=== PATIENT | female | born 1975 | race Caucasian/White ===

== ENCOUNTER → 2020-11-26 | Outpatient (CLI) | payer MEDICAID, OTHER ==
--- NOTE | 2020-11-26 19:44 | XRAY Report ---
PROCEDURE: Wrist 2 View BILAT INDICATIONS: BILATERAL WRIST PAIN FROM WORK TECHNIQUE: 2 views of the bilateral wrists. COMPARISON: None FINDINGS: No fracture or dislocation. No suspicious lytic or blastic osseous lesion. No significant degenerativ e changes in either wrist. Regional soft tissues are unremarkable. IMPRESSION: No acute finding or significant degenerative change. Reviewed by: Lucas Ambrocio MD on 11/26/2020 7:42 PM PDT Approved by: Lucas Ambrocio MD on 11/26/2020 7:42 PM PDT Station ID: [id number]
== END ==
LOC: DI.N 19:14
PROVIDERS: ATTEND Nurse Practitioner
DX: M25.531 Pain in right wrist (principal); M25.532 Pain in left wrist

== ENCOUNTER 2021-11-11 07:47 | Emergency (ER) | payer MEDICAID, OTHER ==
[2021-11-11 07:59] VITALS: BP 122/87
[2021-11-11] MEDS ORDERED: methocarbamoL 500 MG TABLET PO STA (08:22)
[2021-11-11] MEDS ORDERED: NAPROXEN 250 MG TABLET PO STA (08:22)
[2021-11-11] MEDS ORDERED: ACETAMINOPHEN 325 MG TABLET PO STA (08:22)
--- NOTE | 2021-11-11 09:46 | ED Physician Documentation ---
PD HPI NECK PAIN - Stated complaint Stated Complaint: TINGLING/NUMBNESS L HAND/HEAD PRESSURE - Chief complaint Chief Complaint: MHE - History obtained from History obtained from: Patient - History of Present Illness Timing - onset: How many days ago (several) Timing - duration: Days (several) Timing - details: Gradual onset, Waxing and waning (has had pain in left neck radiating to left arm intermittently. Also having stress about work with nausea and vomiting in mornings she feels due to stress.) Location: Mid, Lower, Left Quality: Pain, Spasm, Aching Associated symptoms: Numbness (intermittent in left middle/ring/little fingers, not consistent.). 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 No: Twisting Similar symptoms before: Has not had sx before Recently seen: Not recently seen Review of Systems Skin: denies: Rash, Lesions Neurologic: denies: Focal weakness, Numbness Psychiatric: reports: Anxiety, Insomnia. denies: Depressed, Suicidal PD PAST MEDICAL HISTORY - Past Medical History Past Medical History: Yes Cardiovascular: None Respiratory: None Psych: Anxiety - Past Surgical History Past Surgical History: Yes HEENT: Myringotomy (tubes) - Present Medications Home Medications: Ambulatory Orders Medication Instructions Recorded Confirmed HYDROcod/ACETAM 5/325 [[place] 5/325] 1 ea PO Q6H PRN #15 tablet 11/11/21 Naproxen 500 mg PO BID #20 tab.sr 11/11/21 tiZANidine [Zanaflex] 4 mg PO Q8H PRN #25 tablet 11/11/21 - Allergies Allergies/Adverse Reactions: Allergies Allergy/AdvReac Type Severity Reaction Status Date / Time No Known Drug Allergies Allergy Verified 11/11/21 07:59 - Social History Does the pt smoke?: No Smoking Status: Never smoker Does the pt drink ETOH?: No Does the pt have substance abuse?: No - Immunizations Immunizations are current?: Yes PD ED PE NORMAL - Vitals Vital signs reviewed: Yes - General General: Alert and oriented X 3, Well developed/nourished, Other (seems a bit anxious but interacts well. Denies depression/self harm ideation. ) - Neck Neck: Supple, no meningeal sign, No bony TTP (there is some tenderness left paracervical neck muscles without rash, focal trigger point, sores. ), No adenopathy - Cardiac Cardiac: RRR, No murmur - Respiratory Respiratory: Clear bilaterally - Abdomen Abdomen: Soft, Non tender - Derm Derm: Normal color, Warm and dry - Neuro Neuro: Alert and oriented X 3, No motor deficit, No sensory deficit (normal sensation touch and pinprick currently. ) Results - Vitals Vitals: Vital Signs - 24 hr 11/11/21 07:56 Temperature 37.2 C Heart Rate 69 Respiratory 20 Rate Blood Pressure 122/87 H O2 Saturation 100 Oxygen O2 Source Room air PD MEDICAL DECISION MAKING - ED course Complexity details: considered differential (neck muscle tenderness and pain with intermittent radicular numbness in fingers. Not consistent. Also with anxiety about work. Has had job 2 months. Will have SW talk and reference counselors in area. ), d/w patient Departure - Departure Disposition: 01 Home, Self Care Clinical Impression: Neck pain, Radiculitis, Anxiety Condition: Stable Record reviewed to determine appropriate education?: Yes Instructions: ED Cervical Radiculopathy Prescriptions: Naproxen 500 mg PO BID #20 tab.sr HYDROcod/ACETAM 5/325 [[place] 5/325] 1 ea PO Q6H PRN #15 tablet PRN Reason: Pain tiZANidine [Zanaflex] 4 mg PO Q8H PRN #25 tablet PRN Reason: Spasms Comments: No heavy lifting or repetitive use of the left shoulder for the next 5 days due to neck strain and some nerve irritation. Use naproxen anti-inflammatory twice daily with food for the next 7 to 10 days. Also tizanidine muscle relaxant 3 times daily for stiffness and spasms. To that add Tylenol every 4-6 hours if needed for pain or hydrocodone/acetaminophen if needed for worse pain, particularly at night for sleep etc. Follow-up with your primary care if not improved well over the next several days to week. It may be good to just follow-up in about a week to see how much better you are doing and decide if further treatment such as physical therapy is indicated. I transmitted prescriptions to [facility]. Follow-up also with local counseling regarding anxiety and stress and stress management techniques. Resources were from the social work. I am prescribing a short course of narcotic pain medication for you. These are potentially dangerous and addictive medications that should be used carefully. These medications may constipate you. Take an bebv-gsi-anzpbpn stool softener such as docusate twice daily with plenty of water while taking these medications. If you go 24 hours without a bowel movement, take [id number]-[id number] MiraLAX, per package instructions. Do not drink or drive while taking these medications. If you received narcotic or sedating medications while in the emergency department do not drive for 24 hours. Store this medication in a safe, secure place and out of reach of children. It is a violation of federal law to give or sell this medication to another person or to use in a manner other than prescribed. The ED will not refill narcotic prescriptions, including prescriptions lost or stolen. You can dispose of unwanted medications at the [facility] office or at several pharmacies such as [facility]. Forms: Activity restrictions Discharge Date/Time: 11/11/21 09:58
== END 2021-11-11 09:58 | disposition home or self-care (01) ==
LOC: ED 07:47
DX: M54.12 Radiculopathy, cervical region (principal); F41.9 Anxiety disorder, unspecified
CPT/HCPCS: 99282; 99283; A9270

== ENCOUNTER 2022-11-28 07:30 | Emergency (ER) | payer MEDICAID ==
--- NOTE | 2022-11-28 07:43 | ED Physician Documentation ---
PD HPI CHEST PAIN - Stated complaint Stated Complaint: CP - Chief complaint Chief Complaint: Cardiac - History obtained from History obtained from: Patient - History of Present Illness Timing - onset: Today Timing - onset during: Sleep (awoke from sleep this morning about 2 hours [employer]NR[employer] REPRESENT[employer]IVE with chest pressure/tightness. No change with sitting up. [place] anxious with it. Not affected by breathing. Some worse with torso movement. [place] lightheaded.) Timing - duration: Hours (about 2 hours now. Had decreased and then increased without stopping.) Timing - details: Abrupt onset, Still present, Waxing and waning Quality: Pressure, Tightness. No: Sharp, Tearing Location: Substernal, Left chest Radiation: Left upper extremity. No: Neck, Abdominal Improved by: No: Rest Worsened by: Movement. No: Inspiration, Palpation Associated symptoms: Feeling faint / dizzy, General Weakness. No: Shortness of air, Palpitations, Cough Similar symptoms before: No diagnosis (had similar a week or so ago for 15-20 minutes then improved.) Recently seen: Not recently seen Review of Systems Constitutional: denies: Fever, Chills Nose: denies: Rhinorrhea / runny nose, Congestion Throat: denies: Sore throat Cardiac: denies: Palpitations, Pedal edema, Calf pain Respiratory: denies: Cough GI: denies: Abdominal Pain Neurologic: reports: Generalized weakness. denies: Near syncope, Syncope PD PAST MEDICAL HISTORY - Past Medical History Cardiovascular: None Respiratory: None Psych: Anxiety - Past Surgical History Past Surgical History: Yes HEENT: Myringotomy (tubes) - Present Medications Home Medications: Ambulatory Orders Medication Instructions Recorded Confirmed HYDROcod/ACETAM 5/325 [[place] 5/325] 1 ea PO Q6H PRN #15 tablet 11/11/21 Naproxen 500 mg PO BID #20 tab.sr 11/11/21 tiZANidine [Zanaflex] 4 mg PO Q8H PRN #25 tablet 11/11/21 HYDROcod/ACETAM 5/325 [[place] 5/325] 1 ea PO Q6H PRN #14 tablet 11/28/22 Meloxicam [Mobic] 7.5 mg PO BID 10 Days #20 tablet 11/28/22 - Allergies Allergies/Adverse Reactions: Allergies Allergy/AdvReac Type Severity Reaction Status Date / Time No Known Drug Allergies Allergy Verified 11/11/21 07:59 - Social History Does the pt smoke?: No Smoking Status: Never smoker Does the pt drink ETOH?: No Does the pt have substance abuse?: No - Immunizations Immunizations are current?: Yes PD ED PE NORMAL - Vitals Vital signs reviewed: Yes - General General: Alert and oriented X 3, Well developed/nourished, Other (appears uncomfortable and anxious. ) - Neck Neck: Supple, no meningeal sign, No adenopathy - Cardiac Cardiac: RRR, No murmur - Respiratory Respiratory: No respiratory distress, Clear bilaterally, Other (no chestwall tenderness. ) - Abdomen Abdomen: Normal bowel sounds, Soft, Non distended, Other (some tenderness in epigastric and RUQ abdomen without guarding nor percussion tenderness. ) - Derm Derm: Normal color, Warm and dry - Extremities Extremities: No edema, No calf tenderness / cord Results - Vitals Vitals: Vital Signs - 24 hr 11/28/22 11/28/22 11/28/22 07:32 08:09 08:30 Temperature 36.7 C Heart Rate 84 91 96 Respiratory 16 18 20 Rate Blood Pressure 117/69 107/76 104/75 O2 Saturation 99 100 100 11/28/22 11/28/22 11/28/22 09:00 09:30 09:53 Temperature Heart Rate 93 92 89 Respiratory 20 18 19 Rate Blood Pressure 100/62 93/65 99/68 O2 Saturation 100 100 99 11/28/22 11/28/22 11/28/22 10:00 10:41 11:00 Temperature Heart Rate 88 90 92 Respiratory 19 22 24 Rate Blood Pressure 96/64 103/69 103/68 O2 Saturation 100 100 100 11/28/22 11:57 Temperature Heart Rate 99 Respiratory 18 Rate Blood Pressure 117/72 O2 Saturation 97 Oxygen O2 Source Room air - EKG (time done) 07:30 EKG releavant findings:: EKG personally interpreted by author of this note. Relevant findings are: Rate: Rate (enter#) (91) Rhythm: NSR [place]: Normal Intervals: Normal [place] QRS: Normal Ischemia: Normal ST segments. No: ST elevation c/w ischemia, ST depression - Labs Labs: Laboratory Tests 11/28/22 11/28/22 07:49 07:49 WBC 5.7 RBC 3.53 L Hgb 10.1 L Hct 31.6 L MCV 89.5 MCH 28.6 MCHC 32.0 RDW 14.6 Plt Count 242 MPV 8.9 Neut # (Auto) 4.3 Lymph # (Auto) 1.0 L [place] # (Auto) 0.3 Eos # (Auto) 0.1 Baso # (Auto) 0.0 Absolute Nucleated RBC 0.00 Nucleated RBC % 0.0 Sodium 138 Potassium 3.4 L Chloride 106 Carbon Dioxide 26 Anion Gap 6.0 BUN 6 Creatinine 0.5 L Estimated GFR (MDRD) 133 Glucose 94 Calcium 8.4 L Total Bilirubin 0.3 AST 12 ALT 14 Alkaline Phosphatase 60 Troponin I High Sens < 2.3 L Total Protein 7.4 Albumin 3.6 Globulin 3.8 Albumin/Globulin Ratio 0.9 L Lipase 20 - Rads (name of study) chest xray Relevant Findings:: Prelim report reviewed, EMP independent interpretation of test (no acute findings.) RUQ Abd US Relevant Findings:: Prelim report reviewed (GB and bile duct normal. Fatty liver. No acute findings. ), EMP independent interpretation of test PD Medical Decision Making - ED course Complexity details: considered differential (chest pressure radiating to left arm. Will eval with chest pain order set. ), d/w patient ED course: The patient had a normal EKG and chest x-ray after no over 2 hours of chest discomfort. Troponin was ordered and was within normal range. Evaluation with the above test excluded significant causes such as heart failure, heart attack, pneumonia, pneumothorax, effusions. Blood testing also excluded pancreatitis. Ultrasound excluded gallbladder inflammation or stones. Bile duct appeared normal as well. Her PERC score was 0. The patient was also given a trial of Mylanta antacid which did not have an effect on her discomfort. She was given 1 nitroglycerin which gave her some headache and her pressure did decrease briefly to 98 systolic. This improved with IV fluids. It did not really impact her chest discomfort. She is feeling that her pain is from anxiety. She has been feeling very anxious. This certainly can be behind the cause of the pain though it would still need to translate into some causes of the pain such as musculoskeletal or costochondral and stress can lead to enlarged heart or myocardial injury. We still need to do all the appropriate testing. She is still having some tightness in her chest. She was given morphine IV which actually did have a reasonable improvement in her symptoms. She is given Toradol as well. At this point with the serious causes excluded, I feel treating as muscul oskeletal can be appropriate. Departure - Departure Disposition: 01 Home, Self Care Clinical Impression: Chest pressure Condition: Stable Record reviewed to determine appropriate education?: Yes Instructions: ED Chest Pain Atypical Unkn Cause Prescriptions: Meloxicam [Mobic] 7.5 mg PO BID 10 Days #20 tablet HYDROcod/ACETAM 5/325 [[place] 5/325] 1 ea PO Q6H PRN #14 tablet PRN Reason: Pain Comments: Your EKG, chest x-ray, blood tests are normal here. No signs of heart failure, heart attack, pneumonia, fluid in the lungs nor collapsed lung. Your evaluation of the upper abdomen showed normal testing for gallbladder, pancreas, liver (note was made of a slightly enlarged liver which is fairly common). At this point it is unclear the cause of your pain. It did not seem to be esophageal it is no improvement with the antacid. My assumption would be musculoskeletal at this point with the soreness in the anterior part. We can treat this with anti-inflammatories and add Tylenol or pain medicine if needed. See how you feel over the next day or 2. If you start having fevers, cough, cold symptoms and that may make sense as a precursor symptom to OA of viral illness. Otherwise recheck or follow-up with your primary care if not improved over the next several days or so with the anti-inflammatories and adding pain meds if needed. I sent your prescriptions to your preferred pharmacy. I am prescribing a short course of narcotic pain medication for you. These are potentially dangerous and addictive medications that should be used carefully. These medications may constipate you. Take an lxii-gau-hcebamv stool softener such as docusate twice daily with plenty of water while taking these medications. If you go 24 hours without a bowel movement, take hbjf-qpz-qkfdaes MiraLAX, per package instructions. Do not drink or drive while taking these medications. If you received narcotic or sedating medications while in the emergency department do not drive for 24 hours. Store this medication in a safe, secure place and out of reach of children. It is a violation of federal law to give or sell this medication to another person or to use in a manner other than prescribed. The ED will not refill narcotic prescriptions, including prescriptions lost or stolen. You can dispose of unwanted medications at the [facility]'s office or at several pharmacies such as [facility]. Forms: PCP List Discharge Date/Time: 11/28/22 12:07
[2022-11-28 07:57] LABS: BASOPHILS % (AUTO) 0.3 %; EOSINOPHILS # (AUTO) 0.1 10^3/uL (0.0-0.7); EOSINOPHILS % (AUTO) 1.2 %; HCT - HEMATOCRIT 31.6 % (37.0-47.0); HGB - HEMOGLOBIN 10.1 g/dL (12.0-16.0); LYMPHOCYTES % (AUTO) 18.1 %; MEAN CORPUSCULAR HEMOGLOBIN 28.6 pg (27.0-31.0); MEAN CORPUSCULAR VOLUME 89.5 fL (81.0-99.0); MEAN PLATELET VOLUME 8.9 fL (7.9-10.8); MONOCYTES # (AUTO) 0.3 10^3/uL (0.0-1.0); MONOCYTES % (AUTO) 5.6 %; NEUTROPHILS # (AUTO) 4.3 10^3/uL (1.5-6.6); NEUTROPHILS % (AUTO) 74.3 %; PLT - PLATELET COUNT 242 10^3/uL (130-450); RED BLOOD COUNT 3.53 10^6/uL (4.20-5.40); RED CELL DISTRIBUTION WIDTH 14.6 % (12.0-15.0); WHITE BLOOD COUNT 5.7 x10^3/uL (4.8-10.8)
[2022-11-28] MEDS ORDERED: MAG HYDROX/AL HYDROX/SIMETH 30 ML UDC PO STA (07:59)
[2022-11-28 08:12] LABS: ALBUMIN 3.6 g/dL (3.2-5.5); ALBUMIN/GLOBULIN RATIO 0.9 (1.0-2.2); ALKALINE PHOSPHATASE 60 IU/L (42-121); ALT ALANINE AMINOTRANSFERASE 14 IU/L (10-60); AST ASPARTATE AMINOTRANSFERASE 12 IU/L (10-42); BILIRUBIN,TOTAL 0.3 mg/dL (0.2-1.0); BUN - BLOOD UREA NITROGEN 6 mg/dL (6-20); CALCIUM 8.4 mg/dL (8.5-10.3); CARBON DIOXIDE - CO2 26 mmol/L (21-32); CHLORIDE 106 mmol/L (101-111); CREATININE 0.5 mg/dL (0.6-1.3); GFR - MDRD 133 (>89); GLUCOSE 94 mg/dL (74-104); LIPASE 20 U/L (11-82); POTASSIUM 3.4 mmol/L (3.5-4.5); SODIUM 138 mmol/L (135-145); TOTAL PROTEIN 7.4 g/dL (6.4-8.9)
[2022-11-28 08:15] LABS: TROPONIN I HIGH SENSITIVITY < 2.3 ng/L (2.3-14.8)
[2022-11-28] MEDS ORDERED: NITROGLYCERIN SL 0.4 MG TABLET SL STA (08:18)
[2022-11-28] MEDS ORDERED: KETOROLAC 15 MG/ML VIAL IVP STA (08:18)
--- NOTE | 2022-11-28 08:29 | XRAY Report ---
PROCEDURE: Chest 1 View X-Ray INDICATIONS: Chest pain TECHNIQUE: One view of the chest was acquired. COMPARISON: None. FINDINGS: Surgical changes and devices: None. Lungs and pleura: No pleural effusions or pneumothorax. Lungs are clear. Mediastinum: Mediastinal contours appear normal. Heart size is normal. Bones and chest wall: No suspicious bony lesions. Overlying soft tissues appear unremarkable. IMPRESSION: No acute cardiopulmonary process. Reviewed by: Francisco J Bashir on 11/28/2022 8:28 AM PDT Approved by: Francisco J Bashir on 11/28/2022 8:28 AM PDT Station ID: [id number]
[2022-11-28] MEDS ORDERED: SODIUM CHLORIDE 0.9% 500 ML IV STA (09:40)
[2022-11-28] MEDS ORDERED: MORPHINE 2 MG/ML CARPUJECT IVP STA (09:40)
[2022-11-28] MEDS ORDERED: HYDROmorphone 1 MG/ML CARPUJECT IVP STA (11:11)
[2022-11-28] MEDS ORDERED: SODIUM CHLORIDE 0.9% 1,000 ML IV STA (11:11)
--- NOTE | 2022-11-28 11:26 | Ultrasound Report ---
PROCEDURE: Abdomen Limited INDICATIONS: right upper to chest pain this morning TECHNIQUE: Real-time focused scanning was performed of the abdomen, with image documentation. COMPARISONS: None. FINDINGS: Liver measures 19 cm. Mildly echogenic echotexture. Gallbladder is within normal limits. No stones or focal tenderness. CBD measures 3 mm. Visualized pancreas within normal limits. Right kidney measures 10 cm. Mild cortical thinning is 0.7 cm. IVC is patent. IMPRESSION: No biliary ductal dilation. No cholelithiasis or focal tenderness. Mildly enlarged liver with echogenic appearance, nonspecific, most commonly due to steatosis. Reviewed by: Sawyer Humphries MD on 11/28/2022 11:25 AM PDT Approved by: Sawyer Humphries MD on 11/28/2022 11:25 AM PDT Station ID: [id number]
[2022-11-28 12:05] VITALS: BP 117/72; O2SAT 97
== END 2022-11-28 12:07 | disposition home or self-care (01) ==
LOC: ED 07:30
DX: R07.89 Other chest pain (principal)
CPT/HCPCS: 36415; 71045; 76705; 80053; 83690; 84484; 85025; 93005; 96374; 96375; 99284; A9270; J1170

== ENCOUNTER 2022-12-16 12:35 | Emergency (ER) | payer MEDICAID ==
[2022-12-16 13:14] LABS: BASOPHILS % (AUTO) 0.3 %; EOSINOPHILS # (AUTO) 0.2 10^3/uL (0.0-0.7); EOSINOPHILS % (AUTO) 3.4 %; HCT - HEMATOCRIT 31.9 % (37.0-47.0); LYMPHOCYTES # (AUTO) 1.4 10^3/uL (1.5-3.5); LYMPHOCYTES % (AUTO) 23.6 %; MEAN CORPUSCULAR HEMOGLOBIN 27.7 pg (27.0-31.0); MEAN CORPUSCULAR HGB CONC 31.3 g/dL (32.0-36.0); MEAN CORPUSCULAR VOLUME 88.4 fL (81.0-99.0); MEAN PLATELET VOLUME 8.9 fL (7.9-10.8); MONOCYTES # (AUTO) 0.4 10^3/uL (0.0-1.0); MONOCYTES % (AUTO) 7.1 %; NEUTROPHILS # (AUTO) 3.9 10^3/uL (1.5-6.6); NEUTROPHILS % (AUTO) 65.4 %; PLT - PLATELET COUNT 453 10^3/uL (130-450); RED BLOOD COUNT 3.61 10^6/uL (4.20-5.40); RED CELL DISTRIBUTION WIDTH 14.4 % (12.0-15.0); WHITE BLOOD COUNT 5.9 x10^3/uL (4.8-10.8)
[2022-12-16 13:31] LABS: ALBUMIN 3.7 g/dL (3.2-5.5); ALBUMIN/GLOBULIN RATIO 0.9 (1.0-2.2); ALKALINE PHOSPHATASE 77 IU/L (42-121); ALT ALANINE AMINOTRANSFERASE 13 IU/L (10-60); AST ASPARTATE AMINOTRANSFERASE 13 IU/L (10-42); BILIRUBIN,TOTAL 0.4 mg/dL (0.2-1.0); BUN - BLOOD UREA NITROGEN 8 mg/dL (6-20); CALCIUM 9.3 mg/dL (8.5-10.3); CARBON DIOXIDE - CO2 27 mmol/L (21-32); CHLORIDE 103 mmol/L (101-111); CREATININE 0.6 mg/dL (0.6-1.3); GFR - MDRD 108 (>89); GLUCOSE 115 mg/dL (74-104); LIPASE 15 U/L (11-82); POTASSIUM 3.8 mmol/L (3.5-4.5); SODIUM 137 mmol/L (135-145)
[2022-12-16 13:35] LABS: TROPONIN I HIGH SENSITIVITY < 2.3 ng/L (2.3-14.8)
--- NOTE | 2022-12-16 13:37 | XRAY Report ---
PROCEDURE: Chest 1 View X-Ray INDICATIONS: Chest Pain TECHNIQUE: One view of the chest was acquired. COMPARISON: Chest x-ray, 11/28/2022. FINDINGS: Surgical changes and devices: None. Lungs and pleura: Small to moderate pleural effusions are present bilaterally, new since 11/28/2022. Left basilar atelectasis. No pneumothorax. Mediastinum: Mediastinal contours appear normal. Heart size is normal. Bones and chest wall: No suspicious bony lesions. Overlying soft tissues appear unremarkable. IMPRESSION: Small to moderate bilateral pleural effusions with bibasilar atelectasis. Reviewed by: Xiao Mckeon MD on 12/16/2022 1:36 PM PDT Approved by: Xiao Mckeon MD on 12/16/2022 1:36 PM PDT Station ID: [id number]
[2022-12-16 14:47] LABS: B. PARAPERTUSSIS- RESP PCR PAN NOT DETECTED; B. PERTUSSIS- RESP PCR PANEL NOT DETECTED; C. PNEUMONIAE- RESP PCR PANEL NOT DETECTED; CORONAVIRUS 229E-RESP PCR NOT DETECTED; CORONAVIRUS HKU1-RESP PCR NOT DETECTED; CORONAVIRUS NL63-RESP PCR NOT DETECTED; CORONAVIRUS OC43-RESP PCR NOT DETECTED; HUMAN METAPNEUMOVIRUS NOT DETECTED; INFLUENZA A- RESP PCR PANEL NOT DETECTED; INFLUENZA B - RESP PCR PANEL NOT DETECTED; M. PNEUMONIAE- RESP PCR PANEL NOT DETECTED; PARAINFLUENZA VIRUS 1 NOT DETECTED; PARAINFLUENZA VIRUS 2 NOT DETECTED; PARAINFLUENZA VIRUS 3 NOT DETECTED; PARAINFLUENZA VIRUS 4 NOT DETECTED; RHINOVIRUS/ENTEROVIRUS NOT DETECTED; RSV- RESP PCR PANEL NOT DETECTED; SARS-CoV-2 -RESP PCR PANEL NOT DETECTED
--- NOTE | 2022-12-16 16:28 | ED Physician Documentation ---
History of Present Illness - Stated complaint Stated Complaint: CP - Chief complaint Chief Complaint: Cardiac - History obtained from History obtained from: Patient - History of Present Illness Timing: How many weeks ago (2) - Additonal information Additional information: Patient is a 47-year-old female who presents to the emergency department with 2 weeks of ongoing chest pain. Sometimes on the right, sometimes on the left. Worse with movement, deep breathing. Worse with coughing. She states she felt feverish last night. Has had an increasing cough over the past few weeks as well. Does not smoke. No history of vaping. She was seen here for same, had a negative work-up at that time. Pain is worse with lying down and better with sitting up. Review of Systems Ears: denies: Ear pain Nose: denies: Rhinorrhea / runny nose, Congestion GI: denies: Vomiting, Diarrhea Skin: denies: Rash Musculoskeletal: denies: Neck pain, Back pain Neurologic: denies: Headache PD PAST MEDICAL HISTORY - Past Medical History Past Medical History: Yes Cardiovascular: None Respiratory: None Psych: Anxiety - Past Surgical History Past Surgical History: Yes HEENT: Myringotomy (tubes) - Present Medications Home Medications: Ambulatory Orders Medication Instructions Recorded Confirmed HYDROcod/ACETAM 5/325 [[place] 5/325] 1 ea PO Q6H PRN #15 tablet 11/11/21 Naproxen 500 mg PO BID #20 tab.sr 11/11/21 tiZANidine [Zanaflex] 4 mg PO Q8H PRN #25 tablet 11/11/21 HYDROcod/ACETAM 5/325 [[place] 5/325] 1 ea PO Q6H PRN #14 tablet 11/28/22 Meloxicam [Mobic] 7.5 mg PO BID 10 Days #20 tablet 11/28/22 - Allergies Allergies/Adverse Reactions: Allergies Allergy/AdvReac Type Severity Reaction Status Date / Time No Known Drug Allergies Allergy Verified 11/11/21 07:59 - Social History Does the pt smoke?: No Smoking Status: Never smoker Does the pt drink ETOH?: No Does the pt have substance abuse?: No - Immunizations Immunizations are current?: Yes PD ED PE NORMAL - Vitals Vital signs reviewed: Yes - General General: Alert and oriented X 3, No acute distress - HEENT HEENT: PERRL, Moist mucous membranes - Neck Neck: Supple, no meningeal sign - Cardiac Cardiac: RRR, Strong equal pulses - Respiratory Respiratory: No respiratory distress, Clear bilaterally - Abdomen Abdomen: Soft, Non tender, Non distended - Derm Derm: Warm and dry - Extremities Extremities: No edema, No calf tenderness / cord - Neuro Neuro: Alert and oriented X 3 - Psych Psych: Normal mood, Normal affect Results - Vitals Vitals: Vital Signs - 24 hr 12/16/22 12/16/22 12/16/22 12:38 14:58 16:15 Temperature 36.5 C 36.1 C L Heart Rate 106 H 99 97 Respiratory 18 18 18 Rate Blood Pressure 111/72 97/63 94/66 O2 Saturation 97 99 96 12/16/22 18:54 Temperature Heart Rate 97 Respiratory 18 Rate Blood Pressure 117/80 O2 Saturation 99 Oxygen O2 Source Room air - EKG (time done) 1246 EKG releavant findings:: EKG personally interpreted by author of this note. Relevant findings are: Rate: Rate (enter#) (103) Rhythm: Sinus tachycardia [place]: Normal Intervals: Normal HI QRS: Normal Ischemia: Non specific changes - Labs Labs: Laboratory Tests 12/16/22 12/16/22 12/16/22 13:10 13:10 13:10 WBC 5.9 RBC 3.61 L Hgb 10.0 L Hct 31.9 L MCV 88.4 MCH 27.7 MCHC 31.3 L RDW 14.4 Plt Count 453 H MPV 8.9 Neut # (Auto) 3.9 Lymph # (Auto) 1.4 L [place] # (Auto) 0.4 Eos # (Auto) 0.2 Baso # (Auto) 0.0 Absolute Nucleated RBC 0.00 Nucleated RBC % 0.0 Sodium 137 Potassium 3.8 Chloride 103 Carbon Dioxide 27 Anion Gap 7.0 BUN 8 Creatinine 0.6 Estimated GFR (MDRD) 108 Glucose 115 H Calcium 9.3 Total Bilirubin 0.4 AST 13 ALT 13 Alkaline Phosphatase 77 Troponin I High Sens < 2.3 L B-Natriuretic Peptide 37 Total Protein 8.0 Albumin 3.7 Globulin 4.3 H Albumin/Globulin Ratio 0.9 L Lipase 15 Nasal Adenovirus (PCR) Nasal B. parapertussis DNA (PCR) Nasal Coronavir 229E PCR Nasal Coronavir HKU1 PCR Nasal Coronavir NL63 PCR Nasal Coronavir OC43 PCR Nasal Enterovir/Rhinovir PCR Nasal Influenza B PCR Nasal Influenza A PCR Nasal Parainfluen 1 PCR Nasal Parainfluen 2 PCR Nasal Parainfluen 3 PCR Nasal Parainfluen 4 PCR Nasal RSV (PCR) Nasal B.pertussis DNA PCR Nasal C.pneumoniae (PCR) Alex Human Metapneumo PCR Nasal M.pneumoniae (PCR) Nasal SARS-CoV-2 (PCR) 12/16/22 13:35 WBC RBC Hgb Hct MCV MCH MCHC RDW Plt Count MPV Neut # (Auto) Lymph # (Auto) [place] # (Auto) Eos # (Auto) Baso # (Auto) Absolute Nucleated RBC Nucleated RBC % Sodium Potassium Chloride Carbon Dioxide Anion Gap BUN Creatinine Estimated GFR (MDRD) Glucose Calcium Total Bilirubin AST ALT Alkaline Phosphatase Troponin I High Sens B-Natriuretic Peptide Total Protein Albumin Globulin Albumin/Globulin Ratio Lipase Nasal Adenovirus (PCR) NOT DETECTED Nasal B. parapertussis DNA (PCR) NOT DETECTED Nasal Coronavir 229E PCR NOT DETECTED Nasal Coronavir HKU1 PCR NOT DETECTED Nasal Coronavir NL63 PCR NOT DETECTED Nasal Coronavir OC43 PCR NOT DETECTED Nasal Enterovir/Rhinovir PCR NOT DETECTED Nasal Influenza B PCR NOT DETECTED Nasal Influenza A PCR NOT DETECTED Nasal Parainfluen 1 PCR NOT DETECTED Nasal Parainfluen 2 PCR NOT DETECTED Nasal Parainfluen 3 PCR NOT DETECTED Nasal Parainfluen 4 PCR NOT DETECTED Nasal RSV (PCR) NOT DETECTED Nasal B.pertussis DNA PCR NOT DETECTED Nasal C.pneumoniae (PCR) NOT DETECTED Alex Human Metapneumo PCR NOT DETECTED Nasal M.pneumoniae (PCR) NOT DETECTED Nasal SARS-CoV-2 (PCR) NOT DETECTED - Rads (name of study) Chest x-ray Relevant Findings:: Final report received, See rad report CT chest Relevant Findings:: Final report received, See rad report PD Medical Decision Making - ED course Complexity details: reviewed results, re-evaluated patient, considered differential, d/w patient, d/w family ED course: 47-year-old female with bilateral pleural effusions. There is no evidence of mass on chest x-ray. Does not have any history of liver issues. BNP is normal. She has had a cough and some subjective fevers, therefore we will treat with antibiotics and have her follow-up with her PCP to ensure resolution. If she does not resolve as expected, will likely need a thoracentesis with interventional radiology. Patient is well-appearing, nontoxic. Afebrile. No hypoxia or respiratory distress. Patient counseled regarding signs and symptoms for which I believe and urgent re-evaluation would be necessary. Patient with good understanding of and agreement to plan and is comfortable going home at this time This document was made in part using voice recognition software. While efforts are made to proofread this document, sound alike and grammatical errors may occur. Departure - Departure Disposition: Home, Self Care Clinical Impression: Pleural effusion Condition: Good Instructions: ED Effusion Pleural Follow-Up: your,doctor in 1-2 weeks [Other] Comments: You have pleural effusions on your x-ray and CT scan today. We will treat these as likely complication of infection. We will place you on antibiotics. You should have a repeat x-ray in approximately 2 weeks to ensure that they are improving and/or resolved. Please take all antibiotics until gone. Your prescriptions were sent to [facility] in [place]. If these are not improving as expected, your doctor may want to refer you for a thoracentesis which would involve taking fluid from the area for analysis. This is performed by a radiology. Forms: PCP List Discharge Date/Time: 12/16/22 18:55
[2022-12-16] MEDS ORDERED: iohexoL-300 100 ML VIAL IVP ONE (17:53)
--- NOTE | 2022-12-16 18:13 | CT Report ---
PROCEDURE: ANGIO CHEST W/WO INDICATIONS: chest pain, pleural effusions CONTRAST: 100ml omni 300 TECHNIQUE: After the administration of intravenous contrast, 2 mm axial images were acquired from the pulmonary apices to the posterior costophrenic angles during the arterial phase. In addition, 1 mm lung kernel and 5 mm soft tissue kernel reconstructions were performed. 3-dimensional coronal oblique maximum int ensity projection (MIP) reformats, 8 mm axial MIP, and 5 mm coronal and sagittal MPR reformats were t hen performed through the thorax. For radiation dose reduction, the following was used: automated exp osure control, adjustment of mA and/or kV according to patient size. COMPARISON: Correlation is made with the accompanying chest x-ray. FINDINGS: Image quality: Excellent. Large vessels: No filling defects within the opacified pulmonary arteries, accounting for motion and contrast timing. No evidence of acute aortic syndrome or aortic aneurysm. Lungs and pleura: Small to moderate bilateral pleural effusions are seen, with overlying atelectasis. Mild generalized parenchymal loss opacity can be seen within the lungs. Mediastinum: Heart size is normal. No pericardial effusion. No large vessel abnormality. No mediastin al adenopathy by size criteria. Chest wall and lower neck: Thyroid is unremarkable. No axillary or supraclavicular adenopathy by size . Bones: No aggressive osseous abnormality. Upper Abdomen: An enlarged, fatty infiltrated liver can be seen. The visualized portions of the upper abdominal structures are otherwise within normal limits. IMPRESSION: No pulmonary embolus. Small to moderate bilateral pleural effusions are seen, with associated overlying atelectasis. Reviewed by: Brandyn Cordon MD on 12/16/2022 5:12 PM JENNIFER Approved by: Brandyn Cordon MD on 12/16/2022 5:12 PM JENNIFER Station ID: [id number]
[2022-12-16] MEDS ORDERED: AMOX/CLAV 875 MG/125 MG TABLET PO STA (18:34)
[2022-12-16] MEDS ORDERED: AZITHROMYCIN 250 MG TABLET PO STA (18:34)
[2022-12-16 18:58] VITALS: BP 117/80; O2SAT 99
== END 2022-12-16 18:55 | disposition home or self-care (01) ==
LOC: ED 12:35
DX: R07.9 Chest pain, unspecified (principal); R05.9 Cough, unspecified; J90 Pleural effusion, not elsewhere classified; Z20.822 Contact with and (suspected) exposure to COVID-19
CPT/HCPCS: 36415; 71045; 71275; 80053; 83690; 83880; 84484; 85025; 87633; 93005; 99283; 99284; A9270; Q9967

== ENCOUNTER 2023-08-15 08:00 | Outpatient (CLI) | payer MEDICAID ==
--- NOTE | 2023-08-15 13:55 | XRAY Report ---
PROCEDURE: Wrist 3+V RT INDICATIONS: PAIN IN RIGHT WRIST TECHNIQUE: 3 views of the wrist were acquired. COMPARISON: 11/26/2020 FINDINGS: Bones: Moderate patchy demineralization. No visible acute fractures. There is slight ulnar positive variance. Scapholunate interval widening is present measuring greater than 4 mm. This may have been p resent previously but is more pronounced on current exam. There is overall moderate radiocarpal joint space loss, similar compared to the prior exam. No suspicious bone lesions. Soft tissues: No suspicious soft tissue calcifications or masses. IMPRESSION: No acute or definite subacute fractures. Scapholunate interval widening, may be chronic but is more pronounced on the current exam indicating ligamentous injury. Osteopenia greater than expected for the patient's age. Reviewed by: Julianna Aburto MD on 08/15/2023 1:54 PM PDT Approved by: Julianna Aburto MD on 08/15/2023 1:54 PM PDT Station ID: [id number]
== END 2023-08-15 08:15 | disposition home or self-care (01) ==
LOC: DI.N 08:00
PROVIDERS: ATTEND Physician Assistant Medical
DX: S69.81XA Other specified injuries of right wrist, hand and finger(s), initial encounter (principal); M85.831 Other specified disorders of bone density and structure, right forearm